=== PATIENT | male | born 1975 | race African-American/Black ===

== ENCOUNTER 2016-10-20 01:50 | Emergency (ER) | payer OTHER ==
[~2016-10-20] VITALS: Ht 165.1 cm; Wt 84.1 kg
[2016-10-20 01:55] VITALS: BP 144/86; TEMP 98.5
[2016-10-20 02:36] LABS: BASO % 0.3 % (0.0-2.0); EOS # 0.2 (0.0-0.7); GRAN # 3.1 (1.4-6.5); GRAN % 54.6 % (42.2-75.2); HEMATOCRIT 43.6 % (42.0-52.0); HEMOGLOBIN 14.2 g/dl (13.5-18.0); LYMPH # 2.1 (1.2-3.4); LYMPH % 36.2 % (20.0-51.0); MEAN CELL VOLUME 86 fl (80.0-100.0); MEAN CORPUSCULAR HEMOGLOBIN 28 pg (27.0-31.0); MEAN CORPUSCULAR HGB CONC 33 g/dl (33.0-37.0); MEAN PLATELET VOLUME 8.8 fl (7.4-10.4); MONO # 0.3 (0.1-0.6); MONO % 5.7 % (1.7-9.3); PLATELET COUNT 243 K/mm3 (130-400); RED BLOOD COUNT 5.09 M/mm3 (4.20-5.60); REDCELL DISTRIBUTION WIDTH-CV 12.4 % (11.5-14.5); WHITE BLOOD COUNT 5.8 K/mm3 (4.8-10.8)
[2016-10-20 02:51] LABS: C-REACTIVE PROTEIN 1.4 mg/dL (0.0-0.9)
[2016-10-20] MEDS ORDERED: INDOCIN50 MG PO (02:56)
[2016-10-20 02:59] LABS: ERYTHROCYTE SEDIMENTATION RATE 5 mm/hr (0-15)
[2016-10-20 03:04] LABS: URIC ACID 6.4 mg/dL (3.5-8.5)
[2016-10-20 03:18] VITALS: PULSE 64
== END 2016-10-20 03:19 | disposition home or self-care (01) ==
LOC: COL.ER 01:50
PROVIDERS: Physician Assistant
DX: M25.571 Pain in right ankle and joints of right foot (principal)

== ENCOUNTER 2018-05-26 09:54 | Emergency (ER) | payer BC ==
[~2018-05-26] VITALS: Ht 167.6 cm; Wt 80.9 kg
[~2018-05-26 09:54] MED LIST: INDOCIN50 MG PO
[2018-05-26 09:59] VITALS: TEMP 98.8
[2018-05-26] MEDS ORDERED: FLEXERIL 1010 MG/TAB PO (10:22)
[2018-05-26] MEDS ORDERED: VOLTAREN 75 DR75 MG PO (10:22)
[2018-05-26] MEDS ORDERED: TYLENOL W/COD1 UDTAB PO (10:22)
[2018-05-26 12:32] VITALS: BP 101/60; PULSE 58
== END 2018-05-26 12:30 | disposition home or self-care (01) ==
LOC: COL.ER 09:54
DX: S16.1XXA Strain of muscle, fascia and tendon at neck level, initial encounter (principal); X58.XXXA Exposure to other specified factors, initial encounter
CPT/HCPCS: J1885

== ENCOUNTER 2018-06-25 09:30 | Outpatient (RCR) | payer BC ==
[~2018-06-25 09:30] MED LIST changes: +FLEXERIL 1010 MG/TAB PO; +TYLENOL W/COD1 UDTAB PO; +VOLTAREN 75 DR75 MG PO
== END 2018-07-04 12:27 | disposition home or self-care (01) ==
LOC: WSPT 09:30
DX: M62.838 Other muscle spasm (principal)

== ENCOUNTER 2021-01-04 11:23 | Emergency (ER) | payer SELFPAY ==
[~2021-01-04] VITALS: Ht 167.6 cm; Wt 84.1 kg
[2021-01-04 13:22] VITALS: BP 149/94; PULSE 91
== END 2021-01-04 13:22 | disposition home or self-care (01) ==
LOC: COL.ER 11:23
DX: S83.91XA Sprain of unspecified site of right knee, initial encounter (principal); F17.210 Nicotine dependence, cigarettes, uncomplicated; X58.XXXA Exposure to other specified factors, initial encounter
CPT/HCPCS: L1846

== ENCOUNTER 2022-12-27 17:40 | Emergency (ER) | payer SELFPAY ==
[~2022-12-27] VITALS: Ht 165.1 cm; Wt 84.1 kg
[2022-12-27 18:02] VITALS: BP 156/888; TEMP 98
[2022-12-27 18:35] LABS: BASO % 0.5 % (0.0-2.0); EOS # 0.6 K/mm3 (0.0-0.7); EOS % 10.2 % (0.0-4.0); GRAN # 2.8 K/mm3 (1.4-6.5); GRAN % 50.1 % (42.2-75.2); HEMATOCRIT 39.6 % (42.0-52.0); LYMPH # 1.7 K/mm3 (1.2-3.4); LYMPH % 30.9 % (20.0-51.0); MEAN CELL VOLUME 81 fl (80.0-100.0); MEAN CORPUSCULAR HEMOGLOBIN 27 pg (27-31); MEAN CORPUSCULAR HGB CONC 33 g/dl (33.0-37.0); MEAN PLATELET VOLUME 8.2 fl (7.4-10.4); MONO # 0.5 K/mm3 (0.1-0.6); MONO % 8.1 % (1.7-9.3); PLATELET COUNT 314 K/mm3 (130-400); RED BLOOD COUNT 4.88 M/mm3 (4.20-5.60); REDCELL DISTRIBUTION WIDTH-CV 12.5 % (11.5-14.5)
[2022-12-27 18:55] LABS: ALBUMIN 3.5 gm/dL (3.5-5.0); BILIRUBIN,TOTAL 0.3 mg/dL (0.2-1.2); CALCIUM 9.3 mg/dL (8.4-10.2); CREATININE, serum 0.99 mg/dL (0.72-1.25); TOTAL PROTEIN 7.6 gm/dL (6.2-8.1)
[2022-12-27] MEDS ORDERED: NORCO 325 MG-51 TAB PO (19:11)
[2022-12-27] MEDS ORDERED: PREDNISONE10 MG PO (19:11)
[2022-12-27 19:18] VITALS: PULSE 80
== END 2022-12-27 19:19 | disposition home or self-care (01) ==
LOC: COL.ER 17:40
PROVIDERS: Personal Emergency Response Attendant
DX: M25.562 Pain in left knee (principal); M25.471 Effusion, right ankle; M25.511 Pain in right shoulder; F17.210 Nicotine dependence, cigarettes, uncomplicated; Z28.310 Unvaccinated for COVID-19